=== PATIENT | male | born 1985 | race Caucasian/White ===

== ENCOUNTER 2018-06-05 10:42 | Emergency (ER) | payer BC ==
[~2018-06-05] VITALS: Ht 175.3 cm; Wt 101.2 kg
[~2018-06-05 10:42] MED LIST: ROBITUSSIN
[2018-06-05 10:47] VITALS: BP 115/70
--- NOTE | 2018-06-05 10:51 | NUR ---
PATIENT AMBULATED TO BED 9.
--- NOTE | 2018-06-05 10:55 | NUR ---
32 y.o male came in with chief complaint of right eye redness. He has had 2 bouts of reddess in the same eye in the past month. denies all pain. denies vision changes. Pt states the last time this happened, he washed his eye out for several days and it went away. Worried its an infection. Denies all other problems.
--- NOTE | 2018-06-05 11:24 | NUR ---
AWAITING DR. MOORE'S DISCHARGE
--- NOTE | 2018-06-05 11:57 | NUR ---
D/C PT HOME WITH INSTRUCTIONS AND MEDICATION. EDUCATED PT ON DX, ANSWERED ALL QUESTIONS AND ENSURE PT DID NOT HAVE ANY FUTHER CONCERNS.
[2018-06-05 12:00] VITALS: BP 124/79
== END 2018-06-05 11:57 | disposition home or self-care (01) ==
LOC: MED 10:42
DX: H00.022 Hordeolum internum right lower eyelid (principal); F17.200 Nicotine dependence, unspecified, uncomplicated
CPT/HCPCS: 99283

== ENCOUNTER 2018-11-20 13:18 | Emergency (ER) | payer BC ==
--- NOTE | 2018-11-20 13:55 | NUR ---
CALLED TWICE ON 1355 AND 1405 AT THE LOBBY, NO ANSWER LWBS
== END 2018-11-20 14:05 | disposition left against medical advice (07) ==
LOC: MED 13:18
DX: M54.2 Cervicalgia (principal); Z53.21 Procedure and treatment not carried out due to patient leaving prior to being seen by health care provider

== ENCOUNTER 2019-09-14 04:37 | Emergency (ER) | payer BC, OTHER ==
[~2019-09-14] VITALS: Ht 170.2 cm; Wt 99.8 kg
[2019-09-14 04:44] VITALS: BP 141/86
--- NOTE | 2019-09-14 04:44 | NUR ---
34 Y/O M PRESENTS TO ED WITH C/O LT LEG PAIN SINCE FRIDAY. SHARP, SHOOTING PAIN FROM HEEL UP TO LT BUTTOCKS. PT DENIES INJURY. PT SELF MEDICATED WITH TYLENOL AT 2230. PT TACHYCARDIC WITH HR AT 129. PER PT "I HAD A MONSTER ABOUT AN HOUR AND A HALF AWAY." PT SMOKES MARIJUANA, BUT DENIES OTHER ILLICIT DRUGS. WILL CONTINUE TO MONITOR.
--- NOTE | 2019-09-14 04:44 | NUR ---
PT AMBULATED TO BED #2
--- NOTE | 2019-09-14 05:57 | NUR ---
Patient discharged with v/s stable. Written and verbal after care instructions given and explained. Patient alert, oriented and verbalized understanding of instructions. Ambulatory with steady gait. All questions addressed prior to discharge. ID band removed. Patient advised to follow up with PMD. Rx of NAPROSYN PREDNISONE given. Patient educated on indication of medication including possible reaction and side effects. Opportunity to ask questions provided and answered.
== END 2019-09-14 05:57 | disposition home or self-care (01) ==
LOC: MED 04:37
DX: M54.32 Sciatica, left side (principal); J45.909 Unspecified asthma, uncomplicated
CPT/HCPCS: 99283

== ENCOUNTER 2019-12-11 17:54 | Emergency (ER) | payer OTHER ==
[~2019-12-11] VITALS: Ht 170.2 cm; Wt 95.3 kg
[2019-12-11 18:14] VITALS: BP 136/74
--- NOTE | 2019-12-11 18:19 | NUR ---
34 Y/O MALE C/O CHEST CONGESTION, FEVER, FATIGUE, GENERALIZED MALAISE X TODAY DENIES N/V/D. PATIENT STATES HE HAS GENERALIZED WEAKNES; PAIN IS ABOUT A 5/10. CLEAR LUNG SOUNDS THROUGHOUT. ERMD MADE AWARE OF STATUS. SIDE RAILSX1. VSS. WILL CONTINUE TO MONITOR. HX--DENIES RX--NONE
--- NOTE | 2019-12-11 18:19 | NUR ---
pt ambulated to er bed 02
--- NOTE | 2019-12-11 19:22 | NUR ---
PATIENT LEFT WITHOUT BEING SEEN BY DR. GILES. NO FURTHER CARE PROVIDED FOR PATIENT.
== END 2019-12-11 19:22 | disposition left against medical advice (07) ==
LOC: MED 17:54
DX: J45.909 Unspecified asthma, uncomplicated (principal); Z53.21 Procedure and treatment not carried out due to patient leaving prior to being seen by health care provider

== ENCOUNTER 2020-02-02 03:23 | Emergency (ER) | payer OTHER ==
[~2020-02-02] VITALS: Ht 170.2 cm; Wt 99.8 kg
[2020-02-02 03:25] VITALS: BP 134/86
--- NOTE | 2020-02-02 03:25 | NUR ---
to bed # 08 ambulatory Addendum: 02/02/20 at 0340 by TERESSA BED #9
--- NOTE | 2020-02-02 03:29 | NUR ---
BIB SELF REPORTS SHARP, CRAMPING PAIN IN LEFT LEG STARTING ABOVE KNEE AND RADIATING DOWN CALF. PATIENT REPORTS HE HAS HAD THIS TYPE OF PAIN IN THE PAST AND WAS DX WITH SCIATICA. NO OTHER SYMPTOMS REPORTED. +[facility] NO INJURY REPORTED. PATIENT SITTING UP IN BED. AAO.
--- NOTE | 2020-02-02 03:30 | NUR ---
DR BERMUDEZ AT BEDSIDE.
[2020-02-02] MEDS ORDERED: KETOROLAC 60 MG/2 ML VIAL IM ONE (03:37)
[2020-02-02] MEDS: KETOROLAC 60 MG/2 ML VIAL IM ONE (03:47)
[2020-02-02 03:56] VITALS: BP 134/86
--- NOTE | 2020-02-02 03:57 | NUR ---
Patient discharged with v/s stable. Written and verbal after care instructions given and explained. Patient alert, oriented and verbalized understanding of instructions. Ambulatory with steady gait. All questions addressed prior to discharge. ID band removed. Patient advised to follow up with PMD. Rx of PREDNISONE, NAPROSYN given. Patient educated on indication of medication including possible reaction and side effects. Opportunity to ask questions provided and answered.
== END 2020-02-02 03:56 | disposition home or self-care (01) ==
LOC: MED 03:23
DX: M54.42 Lumbago with sciatica, left side (principal); J45.909 Unspecified asthma, uncomplicated
CPT/HCPCS: 96372; 99283; J1885

== ENCOUNTER 2021-05-28 15:08 | Inpatient (IN) | payer MEDICAID, SELFPAY ==
[~2021-05-28] VITALS: Ht 172.7 cm; Wt 112.0 kg
[2021-05-28 15:33] VITALS: BP 123/87
[2021-05-28] MEDS ORDERED: IBUPROFEN 800 MG TAB PO ONE (16:05)
[2021-05-28] MEDS ORDERED: NACL 0.9% 2,000 ML IV ONE (16:05)
[2021-05-28] MEDS ORDERED: ACETAMINOPHEN EXTRA STRENGTH 500 MG TAB PO ONE (16:05)
--- NOTE | 2021-05-28 16:20 | NUR ---
Patient taken to x-ray via wheelchair by tech.
[2021-05-28 16:26] LABS: BASOPHILS % (AUTO) 0.3 % (0.0-2.0); EOSINOPHILS # (AUTO) 0.1 K/uL (0-0.4); EOSINOPHILS % (AUTO) 0.8 % (0.0-4.0); HEMATOCRIT 52.3 % (36-52); HEMOGLOBIN 17.5 g/dL (12.0-18.0); LYMPHOCYTES # (AUTO) 1.1 K/uL (2.0-11.5); LYMPHOCYTES % (AUTO) 9.4 % (20.5-51.1); MEAN CORPUSCULAR HEMOGLOBIN 29 pg (27-31); MEAN CORPUSCULAR HGB CONC 34 g/dL (33-37); MEAN CORPUSCULAR VOLUME 85.6 fL (80-94); MONOCYTES # (AUTO) 1.1 K/uL (0.8-1.0); MONOCYTES % (AUTO) 8.9 % (1.7-9.3); NEUTROPHILS # (AUTO) 9.6 K/uL (1.8-7.7); NEUTROPHILS % (AUTO) 80.6 % (42.2-75.2); PLATELET COUNT (AUTO) 284 K/uL (140-450); RED BLOOD CELL COUNT(AUTO) 6.11 MIL/uL (4.20-6.10); RED CELL DISTRIBUTION WIDTH 15.3 % (11.6-13.7); WHITE BLOOD COUNT (AUTO) 11.9 K/uL (4.8-10.8)
[2021-05-28 16:37] LABS: APPEARANCE,URINE CLEAR (CLEAR); BILIRUBIN,URINE 2+ (NEGATIVE); BLOOD, URINE TRACE-L (NEGATIVE); LEUKOCYTE ESTERASE ,URINE NEGATIVE (NEGATIVE); NITRITE, URINE NEGATIVE (NEGATIVE); UGLUCOSE TRACE (NEGATIVE)
[2021-05-28 16:41] LABS: ALBUMIN 3.4 g/dL (3.4-5.0); ANION GAP 13.6 (8-16); CARBON DIOXIDE 25.1 mmol/L (21-32); CREATININE 0.9 mg/dL (0.6-1.3); POTASSIUM 3.7 mmol/L (3.5-5.1); TOTAL BILIRUBIN 0.4 mg/dL (0.0-1.0)
[2021-05-28 16:45] LABS: COLOR,URINE YELLOW (YELLOW)
--- NOTE | 2021-05-28 16:45 | NUR ---
35 yo m c/o body aches, fever, sob x 3 days. unknown highest recorded temp. LBM 3 days ago. also with left molar tooth pain. denies n/v. denies abdominal pain. took tylenol yesterday and dayquil/aleve at 1pm today which provided mild relief. pmh: none meds: none nka
--- NOTE | 2021-05-28 16:46 | NUR ---
PATIENT WHEELCHAIR ASSISTED TO BED 10
--- NOTE | 2021-05-28 17:02 | NUR ---
FLU AND COVID SWABS COLLECTED, DROPPED OF AT LAB. HANDED TO CATHI ROCHE
[2021-05-28] MEDS ORDERED: AZITHROMYCIN 250 MG TAB PO ONE (17:05)
[2021-05-28 17:08] LABS: RBC,URINE 0-5 /HPF (0-5); WBC,URINE NONE SEEN /HPF (0-5)
[2021-05-28 17:09] LABS: YEAST,URINE Rare /HPF (None Seen)
[2021-05-28] MEDS ORDERED: cefTRIAXone 1,000 MG VIAL ONE (17:09)
--- NOTE | 2021-05-28 17:40 | NUR ---
Dr. Bowman is evaluating the patient at bedside.
[2021-05-28] MEDS ORDERED: HYDROcodone/APAP 5/325 MG 1 TAB TAB PO PRN (18:05)
[2021-05-28] MEDS ORDERED: POTASSIUM CHLORIDE 40 MEQ, LIDOCAINE MPF 1% 25 MG in NACL 0.9% 250 ML IV PRN (18:05)
[2021-05-28] MEDS ORDERED: MORPHINE SULFATE 2 MG/ML SYR IVP PRN (18:05)
[2021-05-28] MEDS ORDERED: ONDANSETRON 4 MG/2 ML VIAL IM/IVP PRN (18:05)
[2021-05-28] MEDS ORDERED: DOCUSATE SODIUM 100 MG GELCAP PO PRN (18:05)
[2021-05-28] MEDS ORDERED: SODIUM PHOS / POTASSIUM PHOS 1 PKT PDR PO PRN (18:05)
[2021-05-28] MEDS ORDERED: ACETAMINOPHEN 325 MG TAB PO PRN (18:05)
[2021-05-28] MEDS ORDERED: ZOLPIDEM 5 MG TAB PO PRN (18:05)
[2021-05-28] MEDS ORDERED: MAG SULF 2000 MG/WATER PREMIX 50 ML IV PRN (18:05)
[2021-05-28 18:22] LABS: MAGNESIUM 1.5 mg/dL (1.8-2.4); PHOSPHORUS 1.9 mg/dL (2.5-4.9)
[2021-05-28 18:31] LABS: BARBITURATE, URINE NEGATIVE ng/ml (NEG <=200); BENZODIAZEPINE, URINE NEGATIVE ng/mL (NEG <=200); CANNABINOID, URINE NEGATIVE ng/mL (NEG <=50); COCAINE, URINE NEGATIVE ng/mL (NEG <=300); OPIATE, URINE NEGATIVE ng/mL (NEG <=2000); PHENCYCLIDINE SCREEN,URINE NEGATIVE ng/mL (NEG <=25)
--- NOTE | 2021-05-28 18:45 | NUR ---
PT HAD 1 VOMITING EPISODE, ZOFRAN PRN GIVEN. WILL CONTINUE TO MONITOR.
[2021-05-28] MEDS: NACL 0.9% 1,000 ML IV SCH (18:48)
--- NOTE | 2021-05-28 19:02 | NUR ---
ULTRASOUND AT BEDSIDE
--- NOTE | 2021-05-28 19:15 | NUR ---
Pt report given to VINCENZO BONILLA. Transfer of care at this time.
--- NOTE | 2021-05-28 19:16 | NUR ---
RECEIVED REPORT FROM IRENE DUARTE. TRANSFER OF CARE AT THIS TIME.
[2021-05-28] MEDS ORDERED: FLUCONAZOLE 100 MG TAB PO ONE (19:20)
--- NOTE | 2021-05-28 19:25 | NUR ---
ULTRASOUND AT BEDSIDE.
--- NOTE | 2021-05-28 19:59 | NUR ---
CALLED AND GAVE REPORT TO IRENE PERDOMO. TRANSFER OF CARE AT THIS TIME.
--- NOTE | 2021-05-28 20:40 | NUR ---
Patient will be admitted to care of [facility]. Admited to TELE. Will go to room 111A. Belongings list completed. Report to IRENE VITALE.
[2021-05-28 21:30] VITALS: BP 105/55
--- NOTE | 2021-05-28 21:30 | NUR ---
RECEIVED PATIENT FROM ER. CC BODY ACHE, FEVER, SOB X3 DAYS. DX SEPSIS, PNA. PATIENT IS A/A/O X4. RESTING IN BED, RESPIRATORY EVEN AND UNLABORED, ON ROOM AIR, NO SIGN OF DISTRESS NOTED. LUNG SOUND CLEAR TO AUSCULTATE. ABDOMEN SOFT, NON TENDER, BOWEL SOUND ACTIVE TO 4 QUADRANTS. SKIN WARM, DRY, NON DIAPHORETIC. IV ON LEFT AC 22G, INTACT AND PATENT, IS INFUSING MAGNESIUM SULF AT 25ML/HR. PATIENT DENIES ANY PAIN OR DISCOMFORT. ABLE TO MAKE NEEDS KNOWN. MRSA COLLECTED. ORIENTED TO ROOM AND UNIT ROUTINE. PLAN OF CARE DISCUSSED, PATIENT VERBALIZED UNDERSTANDING. CALL LIGHT WITHIN REACH. WILL CONTINUE TO MONITOR.
[2021-05-28] MEDS ORDERED: FLUCONAZOLE 100 MG TAB ONE ×2 (21:43→21:44)
--- NOTE | 2021-05-28 23:14 | NUR ---
PATIENT REPORTS FEELING FEVER, ORAL TEMP 98.0 F. SKIN WARM, DRY, NON DIAPHORETIC. BLANKET PROVIDED. PATIENT STABLE. CALL LIGHT WITHIN REACH. WILL CONTINUE TO MONITOR.
[2021-05-29] VITALS: BP 143/88
--- NOTE | 2021-05-29 00:38 | NUR ---
PATIENT REPORTS FEELING PAIN LIKE BURNING ON HIS FOREHEAD, ORAL TEMPT 99.0 F. TYLENOL GIVEN FOR HEADACHE WITH EDUCATION, PATIENT VERBALIZED UNDERSTANDING. PATIENT TOLERATED WELL. CALL LIGHT WITHIN REACH. WILL CONTINUE TO MONITOR.
--- NOTE | 2021-05-29 02:00 | NUR ---
PATIENT AMBULATES TO BATHROOM INDEPENDENTLY WITH STEADY GAIT. NO SIGN OF DISTRESS NOTED. WILL CONTINUE TO MONITOR.
[2021-05-29 04:00] VITALS: BP 108/50
--- NOTE | 2021-05-29 04:00 | NUR ---
PATIENT IS RESTING IN BED. AROUSABLE TO VOICE. NO SIGN OF DISTRESS NOTED. CALL LIGHT WITHIN REACH. WILL CONTINUE TO MONITOR.
--- NOTE | 2021-05-29 06:00 | NUR ---
ROUND CHECK. PATIENT IS SLEEPING, CHEST RISE AND FALL, NO SIGN OF DISTRESS NOTED. CALL LIGHT WITHIN REACH. WILL CONTINUE TO MONITOR.
[2021-05-29] MEDS: NACL 0.9% 1,000 ML IV SCH (06:35)
[2021-05-29 07:01] LABS: BASOPHILS % (AUTO) 0.4 % (0.0-2.0); EOSINOPHILS # (AUTO) 0.1 K/uL (0-0.4); EOSINOPHILS % (AUTO) 1.2 % (0.0-4.0); HEMATOCRIT 46.8 % (36-52); HEMOGLOBIN 15.6 g/dL (12.0-18.0); LYMPHOCYTES # (AUTO) 1.3 K/uL (2.0-11.5); LYMPHOCYTES % (AUTO) 11.2 % (20.5-51.1); MEAN CORPUSCULAR HEMOGLOBIN 28 pg (27-31); MEAN CORPUSCULAR HGB CONC 33 g/dL (33-37); MEAN CORPUSCULAR VOLUME 84.4 fL (80-94); MONOCYTES % (AUTO) 9.1 % (1.7-9.3); NEUTROPHILS % (AUTO) 78.1 % (42.2-75.2); PLATELET COUNT (AUTO) 259 K/uL (140-450); RED BLOOD CELL COUNT(AUTO) 5.54 MIL/uL (4.20-6.10); RED CELL DISTRIBUTION WIDTH 15.4 % (11.6-13.7); WHITE BLOOD COUNT (AUTO) 11.5 K/uL (4.8-10.8)
--- NOTE | 2021-05-29 07:10 | NUR ---
ENDORSED PATIENT TO AM NURSE FOR CONTINUITY OF CARE. PATIENT AMBULATE TO BATHROOM INDEPENDENTLY WITH STEADY GAIT. PATIENT IS STABLE.
[2021-05-29 07:14] LABS: ANION GAP 13.4 (8-16); CARBON DIOXIDE 23.3 mmol/L (21-32); CREATININE 0.9 mg/dL (0.6-1.3); POTASSIUM 3.7 mmol/L (3.5-5.1)
--- NOTE | 2021-05-29 07:20 | NUR ---
RECEIVED BEDSIDE REPORT FROM PROFILE GRINDER TECHNICIAN NURSE FOR CONTINUITY OF CARE. PT IS ALERT AND ORIENTED X4. SKIN IS WARM AND DRY. IV IS INTACT AND RUNNING NS AT 80 ML/HR. RESPIRATIONS IS EVEN AND UNLABORED. PT IS ABLE TO LET HIS NEEDS KNOWN. PT IS STABLE. WILL CONTINUE TO MONITOR.
[2021-05-29 08:00] VITALS: BP 120/68
--- NOTE | 2021-05-29 08:40 | NUR ---
ADMINISTERED PRESCRIBED MEDICATION. PT TOLERATED WELL. MEDICATION EDUCATION PERFORMED AND VERBALIZED UNDERSTANDING. SAFETY MEASURES IN PLACE AND WILL CONTINUE TO MONITOR.
[2021-05-29] MEDS ORDERED: AZITHROMYCIN 250 MG TAB PO SCH (09:00)
[2021-05-29] MEDS ORDERED: PANTOPRAZOLE 40 MG TABEC PO SCH (09:00)
--- NOTE | 2021-05-29 09:02 | NUR ---
PATIENT HAS BEEN SCREENED AND CATEGORIZED MODERATE NUTRITION RISK. PATIENT WILL BE SEEN WITHIN 3-5 DAYS OF ADMISSION. 05/31/21 06/02/[address]
--- NOTE | 2021-05-29 11:10 | NUR ---
PT IS AWAKE AND ORIENTED X4. PT IS SITTING IN BED. IV IS INTACT AND INFUSING NS AT 80 ML/HR. PT IS ON RA WITH CHEST RISING AND FALLING SYMMETRICALLY. NO DISTRESS NOTED. WILL CONTINUE TO MONITOR.
--- NOTE | 2021-05-29 11:45 | NUR ---
PT EXPRESSED CONCERNS ABOUT WANTING TO LEAVE TODAY. EDUCATED PT THAT HE STILL NEEDS TO STAY BECAUSE OF PENDING BLOOD CULTURES AND ELEVATED WBC. EDUCATED PT THAT HE NEEDS TO STAY BECAUSE HE WAS RECENTLY ADMITTED AND NEEDS MORE TESTING. PT SAYS HE'LL THINK ABOUT IT. MD AND CHARGE AWARE. SAFETY MEASURES IN PLACE.
[2021-05-29 12:00] VITALS: BP 131/75
[2021-05-29] MEDS ORDERED: PANT40EC56 PO (12:19)
[2021-05-29] MEDS ORDERED: AZIT250T3 PO (12:19)
--- NOTE | 2021-05-29 12:30 | NUR ---
PT EXPRESSED THAT HE WANTS TO LEAVE AMA. EDUCATED PT OF THE RISK AND BENEFITS OF STAYING VS LEAVING THE HOSPITAL. PT VERBALIZED "THAT HE UNDERSTANDS THE RISK AND BENEFITS" AND STILL WANTS TO LEAVE AMA. MD AND CHARGE AWARE. REMOVED INTACT IV CANNULA, ID BANDS, REMOVED TELE BOX AND RETURN TO PAINTING DEPARTMENT SUPERVISOR. PT NEEDS SHIRT AND PAGED SECURITY. PT DIDN'T WANT TO WAIT AND WORE FAMILY MEMBER SHIRT. ESCORTED PT OUT OF HOSPITAL.
== END 2021-05-29 12:30 | disposition left against medical advice (07) | DRG 720 ==
LOC: MED 15:08 → MTU 18:06
PROVIDERS: ADMIT Hospitalist; ATTEND Hospitalist
DX: A41.9 Sepsis, unspecified organism (principal); J18.9 Pneumonia, unspecified organism; K76.0 Fatty (change of) liver, not elsewhere classified; E87.1 Hypo-osmolality and hyponatremia; E83.39 Other disorders of phosphorus metabolism; B37.9 Candidiasis, unspecified; E83.42 Hypomagnesemia; Z53.29 Procedure and treatment not carried out because of patient's decision for other reasons; Z20.822 Contact with and (suspected) exposure to COVID-19; J45.909 Unspecified asthma, uncomplicated; F15.90 Other stimulant use, unspecified, uncomplicated
CPT/HCPCS: 36415; 71045; 76705; 80048; 80053; 80305; 81001; 83605; 83735; 84100; 85025; 87040; 87081; 87804; 96361; 96365; 96375; 99291; J0696; J2405; J3475; J7060

== ENCOUNTER 2024-01-08 04:50 | Emergency (ER) | payer MEDICAID ==
[~2024-01-08] VITALS: Ht 170.2 cm; Wt 104.3 kg
[~2024-01-08 04:50] MED LIST changes: +AZIT250T3 PO; +PANT40EC56 PO; -ROBITUSSIN
[2024-01-08 05:00] VITALS: BP 132/76; PULSE 97; RESP 16; TEMP 97.5; O2SAT 98
[2024-01-08 06:41] LABS: BASOPHILS # (AUTO) 0.1 K/uL (0.00-0.22); BASOPHILS % (AUTO) 1.1 % (0.0-2.0); EOSINOPHILS # (AUTO) 0.1 K/uL (0-0.4); HEMATOCRIT 52.3 % (36-52); HEMOGLOBIN 17.6 g/dL (12.0-18.0); LYMPHOCYTES # (AUTO) 2.3 K/uL (2.0-11.5); LYMPHOCYTES % (AUTO) 33.3 % (20.5-51.1); MEAN CORPUSCULAR HEMOGLOBIN 29 pg (27-31); MEAN CORPUSCULAR HGB CONC 34 g/dL (33-37); MEAN CORPUSCULAR VOLUME 86.7 fL (80-94); MONOCYTES # (AUTO) 0.6 K/uL (0.8-1.0); MONOCYTES % (AUTO) 9.1 % (1.7-9.3); NEUTROPHILS # (AUTO) 3.7 K/uL (1.8-7.7); NEUTROPHILS % (AUTO) 54.5 % (42.2-75.2); PLATELET COUNT (AUTO) 316 K/uL (140-450); RED BLOOD CELL COUNT(AUTO) 6.03 MIL/uL (4.20-6.10); RED CELL DISTRIBUTION WIDTH 15.1 % (11.6-13.7); WHITE BLOOD COUNT (AUTO) 6.8 K/uL (4.8-10.8)
[2024-01-08 08:06] LABS: ANION GAP 10.6 (8-16); CALCIUM 8.6 mg/dL (8.5-10.1); CARBON DIOXIDE 30.4 mmol/L (21-32); CREATININE 0.8 mg/dL (0.6-1.3)
[2024-01-08 09:00] VITALS: BP 127/82; PULSE 94; RESP 16; TEMP 97.5; O2SAT 99
== END 2024-01-08 09:00 | disposition home or self-care (01) ==
LOC: MED 04:50
DX: R55 Syncope and collapse (principal); R42 Dizziness and giddiness; J45.909 Unspecified asthma, uncomplicated; Z79.899 Other long term (current) drug therapy
CPT/HCPCS: 36415; 71045; 80048; 83880; 84484; 85025; 93005; 99285; Q0092